=== PATIENT | female | born 2000 | race African-American/Black ===

== ENCOUNTER 2024-08-04 18:23 | Emergency (ER) | payer BC, SELFPAY ==
--- NOTE | ~2024-08-04 | XR_ITS ---
EXAMINATION: XR chest 2V DATE: 08/04/2024 18:57 INDICATION: Vomiting. TECHNIQUE: Frontal and lateral views of the chest were obtained. COMPARISON: None. FINDINGS: There is no pneumonia, pleural effusion, or pneumothorax. The heart size is normal. IMPRESSION: 1. No acute cardiopulmonary disease. Reviewed, dictated and finalized at location A.
[2024-08-04 18:37] VITALS: BP 117/65; PULSE 66; RESP 16; TEMP 36.7; O2SAT 100
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
== END 2024-08-04 19:18 | disposition home or self-care (01) ==
PROVIDERS: Emergency Provider Nurse Practitioner
DX: J06.9 Acute upper respiratory infection, unspecified (principal)
CPT/HCPCS: 71046; 99213; G0463